=== PATIENT | female | born 1995 ===

== ENCOUNTER 2021-01-21 10:58 | Emergency (ER) | payer OTHER ==
[~2021-01-21] VITALS: Ht 175.3 cm; Wt 105.0 kg
[2021-01-21] MEDS ORDERED: SODIUM CHLORIDE 0.9% 1,000 ML IV ONE (11:45)
[2021-01-21 11:59] LABS: BASOPHILS % 0.8 % (0.0-2.0); EOSINOPHILS % 0.6 % (0.0-5.0); HEMATOCRIT. 42.2 % (36.0-48.0); HEMOGLOBIN. 13.7 g/dL (12.0-16.0); LYMPHOCYTES % 37.7 % (20.0-50.0); MEAN CORPUSCULAR HEMOGLOBIN 28.1 pg (28.0-32.0); MEAN CORPUSCULAR VOLUME 86.3 fL (81.0-99.0); MEAN PLATELET VOLUME 7.5 fl (7.4-10.4); NEUTROPHILS % 53.9 % (40.0-76.0); PLATELET 307 x1000/uL (130-400); RED BLOOD CELL COUNT 4.89 mill/uL (4.2-5.4); RED CELL DISTRIBUTION WIDTH 14.6 % (11.6-14.6)
[2021-01-21 12:00] LABS: CHLORIDE 105 mEq/L (98-107)
[2021-01-21 12:01] LABS: HCG SCREEN NEGATIVE
[2021-01-21 12:04] LABS: ETHANOL BLOOD < 10 mg/dL
[2021-01-21 13:30] VITALS: BP 148/70
== END 2021-01-21 13:30 ==
LOC: ER 11:08
DX: R06.02 Shortness of breath (principal); E11.9 Type 2 diabetes mellitus without complications; J40 Bronchitis, not specified as acute or chronic
CPT/HCPCS: 36415; 71045; 80053; 80320; 84703; 85025; 93005; 96360; 99285; J7030; G0480